=== PATIENT | female | born 1995 | race Caucasian/White ===

== ENCOUNTER 2016-11-14 08:56 | Emergency (ER) | payer OTHER ==
[~2016-11-14] VITALS: Ht 165.1 cm; Wt 80.0 kg
[~2016-11-14 08:56] MED LIST: CEPH-443 PO; PHEN-538 PO
[2016-11-14 08:57] VITALS: Ht 165.1 cm; Wt 80.0 kg
[2016-11-14] MEDS ORDERED: morphine 4 MG/ML VIAL IV STA (10:11)
[2016-11-14] MEDS ORDERED: SOD CHLORIDE 0.9% 1,000 ML IV STA (10:11)
[2016-11-14] MEDS ORDERED: ONDANSETRON 4 MG INJ ONE (10:42)
[2016-11-14 10:44] LABS: BASOPHILS % 0.1 % (0.0-2.0); EOSINOPHILS # 0.4 10^3/ul (0.0-0.5); EOSINOPHILS % 3.9 % (0.0-7.0); HEMATOCRIT 37.8 % (37.0-47.0); HEMOGLOBIN 12.3 g/dl (12.0-16.0); LYMPHOCYTES # 2.5 10^3/ul (0.8-2.9); LYMPHOCYTES % 26.5 % (15.0-51.0); MEAN CORPUSCULAR HEMOGLOBIN 28.3 pg (29.0-33.0); MEAN CORPUSCULAR HGB CONC 32.5 g/dl (32.0-37.0); MEAN CORPUSCULAR VOLUME 86.9 fl (82.0-101.0); MEAN PLATELET VOLUME 10.6 fl (7.4-10.4); MONOCYTE # 0.7 10^3/ul (0.3-0.9); MONOCYTES % 7.4 % (0.0-11.0); NEUTROPHIL # 5.8 10^3/ul (1.6-7.5); NEUTROPHILS % 61.8 % (39.0-77.0); PLATELET COUNT 248 10^3/UL (140-415); RED BLOOD COUNT 4.35 10^6/ul (4.20-5.40); RED CELL DISTRIBUTION WIDTH 13.2 % (11.5-14.5); WHITE BLOOD COUNT 9.4 10^3/ul (4.8-10.8)
[2016-11-14 10:57] LABS: ADD UMIC YES; UR ASCORBIC ACID NEGATIVE (NEGATIVE); UR BILIRUBIN (Dip) NEGATIVE (NEGATIVE); UR BLOOD (Dip) 2+ mg/dL (NEGATIVE); UR CLARITY CLOUDY (CLEAR); UR COLOR YELLOW (YELLOW); UR GLUCOSE (Dip) NEGATIVE (NEGATIVE); UR KETONES (Dip) NEGATIVE (NEGATIVE); UR LEUKOCYTE ESTERASE (Dip) 1+ Leu/ul (NEGATIVE); UR MUCUS FEW /HPF (NONE SEEN); UR NITRITE (Dip) NEGATIVE (NEGATIVE); UR NONSQUAMOUS EPITHELIAL CELL 1 /HPF (NONE SEEN); UR RBC 7 /HPF (0-5); UR SPECIFIC GRAVITY (Dip) 1.031 (1.003-1.030); UR SQUAMOUS EPITHELIAL CELL MODERATE /HPF (FEW); UR TOTAL PROTEIN (Dip) 1+ mg/dl (NEGATIVE); UR UROBILINOGEN (Dip) NEGATIVE (NEGATIVE)
[2016-11-14 11:00] LABS: ALBUMIN 4.1 g/dl (3.3-4.9); ALBUMIN/GLOBULIN RATIO 1.17; BILIRUBIN,INDIRECT 0.1 mg/dl (0-1.1); BILIRUBIN,TOTAL 0.1 mg/dl (0.2-1.3); CALCIUM 9.5 mg/dl (8.4-10.2); CREATININE 0.66 mg/dl (0.44-1.00); POTASSIUM 4.1 mmol/L (3.5-5.1); TOTAL PROTEIN 7.6 g/dl (6.1-8.1)
--- NOTE | 2016-11-14 11:29 | RADRPT ---
PROCEDURE: Renal US. CLINICAL INDICATION: Left flank pain TECHNIQUE: Multiple sonographic images of the kidneys were obtained. COMPARISON: No prior studies are available for comparison. FINDINGS: The kidneys are well visualized. The right kidney measures 11.5 cm. The left kidney measures 12.3 cm . Normal renal cortical echogenicity. No evidence of shadowing renal calculi. No hydronephrosis. Mi nimally distended urinary bladder. IMPRESSION: Normal renal ultrasound. RPTAT:AAJJ Physician Santosh Date Time Electronically viewed and signed by Quique Gallagher Physician on 11/14/2016 11:29 /
[2016-11-14] MEDS ORDERED: IBUP-1542 PO (11:54)
[2016-11-14] MEDS ORDERED: CEPH-443 PO (11:56)
--- NOTE | 2016-11-14 12:31 | ERD ---
ER Documentation Chief Complaint Date/Time DATE: 11/14/16 TIME: 12:27 Chief Complaint back pain x 3 days HPI 1-year-old female patient with a past medical history of urinary tract infections and nephrolithiasis presents to the ED complaining of left flank pain that started 3 days ago. Reports that she had one episode of nonbilious nonbloody vomiting and dysuria. States that she has burning with urination. That the left flank pain does radiate down to her left side of the abdomen. Denies any hematuria, urgency, frequency, chest pain, shortness of breath, wheezing, vaginal discharge, vaginal bleeding. ROS All systems reviewed and are negative except as per history of present illness. Medications Home Meds Active Scripts Cephalexin* (Keflex*) 500 Mg Capsule, 500 MG PO TID for 10 Days, CAP Prov:LOS DAVIS PA-C 11/14/16 Ibuprofen* (Motrin*) 600 Mg Tab, 600 MG PO Q6, #30 TAB Prov:LOS DAVIS PA-C 11/14/16 Phenazopyridine Hcl* (Pyridium*) 200 Mg Tab, 200 MG PO TID Y for URINARY PAIN, # 6 TAB Prov:SIRIA FANG PA-C 01/23/16 Cephalexin* (Keflex*) 500 Mg Capsule, 500 MG PO BID for 5 Days, CAP Prov:SIRIA FANG PA-C 01/23/16 Cephalexin* (Keflex*) 500 Mg Capsule, 500 MG PO QID for 7 Days, CAP Prov:SIRIA FANG PA-C 08/18/15 Allergies Allergies: Coded Allergies: No Known Allergy (Unverified , 08/17/15) PMhx/Soc Medical and Surgical Hx: pt denies Medical Hx, pt denies Surgical Hx History of Surgery: No Anesthesia Reaction: No Hx Neurological Disorder: No Hx Respiratory Disorders: No Hx Cardiac Disorders: No Hx Psychiatric Problems: No Hx Miscellaneous Medical Probl: Yes (left sided kidney stone ) Hx Alcohol Use: Yes (OOC) Hx Substance Use: Yes (MJ) Hx Tobacco Use: No Smoking Status: Never smoker Physical Exam Vitals Vital Signs Date Time Temp Pulse Resp B/P Pulse Ox O2 Delivery O2 Flow Rate FiO2 11/14/16 08:57 98.1 67 18 124/67 99 Physical Exam Const: [id number], well-nourished. In no acute distress. Head: Atraumatic, normocephalic Eyes: Normal Conjunctiva without injection. No purulent discharge. ENT: Normal external ear, nose. Moist oropharynx without tonsillar exudates. Non -erythematous pharynx. Uvula midline. No drooling. No trismus. Neck: No cervical midline tenderness. Full range of motion. No meningismus. No cervical lymphadenopathy. No JVD. Resp: Clear to auscultation bilaterally. No wheezing, rhonchi, rales, or crackles. No accessory muscle use. No retractions. Cardio: Regular rate and rhythm. No murmurs, rubs or gallops. Abd: Soft, nontender, non distended. Normal bowel sounds. No palpable masses. No rebound tenderness. No guarding. Negative McBurney's point. Negative psoas sign. Negative obturator sign. Skin: No petechiae or rashes Back: No midline tenderness. Left CVA Tenderness. Ext: No cyanosis, or edema. Neur: Awake and alert. Normal gait. Normal coordination. Psych: Normal Mood and Affect Results 24 hrs Laboratory Tests Test 11/14/16 10:31 White Blood Count 9.410^3/ul Red Blood Count 4.3510^6/ul Hemoglobin 12.3g/dl Hematocrit 37.8% Mean Corpuscular Volume 86.9fl Mean Corpuscular Hemoglobin 28.3pg Mean Corpuscular Hemoglobin Concent 32.5g/dl Red Cell Distribution Width 13.2% Platelet Count 83894^3/UL Mean Platelet Volume 10.6fl Neutrophils % 61.8% Lymphocytes % 26.5% Monocytes % 7.4% Eosinophils % 3.9% Basophils % 0.1% Nucleated Red Blood Cells % 0.0/100WBC Neutrophils # 5.810^3/ul Lymphocytes # 2.510^3/ul Monocytes # 0.710^3/ul Eosinophils # 0.410^3/ul Basophils # 0.010^3/ul Nucleated Red Blood Cells # 0.010^3/ul Urine Color YELLOW Urine Clarity CLOUDY Urine pH 5.0 Urine Specific [place] 1.031 Urine Ketones NEGATIVEmg/dL Urine Nitrite NEGATIVEmg/dL Urine Bilirubin NEGATIVEmg/dL Urine Urobilinogen NEGATIVEmg/dL Urine Leukocyte Esterase 1+Gerardo/ul Urine Microscopic RBC 7/HPF Urine Microscopic WBC 7/HPF Urine Squamous Epithelial Cells MODERATE/HPF Urine Mucus FEW/HPF Urine Hemoglobin 2+mg/dL Urine Glucose NEGATIVEmg/dL Urine Total Protein 1+mg/dl Sodium Level 141mmol/L Potassium Level 4.1mmol/L Chloride Level 106mmol/L Carbon Dioxide Level 27mmol/L Anion Gap 12 Blood Urea Nitrogen 17mg/dl Creatinine 0.66mg/dl Glucose Level 98mg/dl Calcium Level 9.5mg/dl Total Bilirubin 0.1mg/dl Direct Bilirubin 0.00mg/dl Indirect Bilirubin 0.1mg/dl Aspartate Amino Transf (AST/SGOT) 17IU/L Alanine Aminotransferase (ALT/SGPT) 36IU/L Alkaline Phosphatase 70IU/L Total Protein 7.6g/dl Albumin 4.1g/dl Globulin 3.50g/dl Albumin/Globulin Ratio 1.17 Lipase 104U/L Current Medications Medications (Trade) Dose Ordered Sig/Galileo Route PRN Reason Start Time Stop Time Status Last Admin Dose Admin Sodium Chloride (NS) 1,000 ml @ 1,000 mls/hr Q1H STAT IV 11/14/16 10:11 11/14/16 11:10 DC 11/14/16 10:45 Morphine Sulfate (morphine) 4 mg ONCE STAT IV 11/14/16 10:11 11/14/16 10:14 DC 11/14/16 10:45 Ondansetron HCl (Zofran Inj) 4 mg STK-MED ONCE .ROUTE 11/14/16 10:42 11/14/16 10:43 DC Procedures/MDM 1-year-old female patient with no significant past medical history presents to the ED complaining of left sided flank pain and dysuria. Patient is afebrile and nontoxic-appearing. Patient has normal vital signs. Patient was further worked up with CBC, CMP, lipase, UA, renal ultrasound. Patient's pain and symptoms have improved after treatment with 1 L normal saline, 4 mg IV morphine. CBC: No leukocytosis. No e/o of systemic infection. No e/o anemia. CMP: No e/o severe acidosis, alkalosis, renal failure, diabetic ketoacidosis, liver disease Lipase within normal limits. Urine : Negative PROCEDURE: Renal US. CLINICAL INDICATION: Left flank pain TECHNIQUE: Multiple sonographic images of the kidneys were obtained. COMPARISON: No prior studies are available for comparison. FINDINGS: The kidneys are well visualized. The right kidney measures 11.5 cm. The left kidney measures 12.3 cm. Normal renal cortical echogenicity. No evidence of shadowing renal calculi. No hydronephrosis. Minimally distended urinary bladder. IMPRESSION: Normal renal ultrasound. Patient's left flank pain could likely be secondary to pyelonephritis. There is no hydronephrosis or nephrolithiasis noted on ultrasound. Has 1+ leukocyte esterase with 7 white blood cells and 2+ hematuria with 7 red blood cells. There is low suspicion for septic renal stone, ectopic , ovarian torsion, gastritis, GERD, peptic ulcer disease, cholecystitis, choledocholithiasis, cholangitis, pancreatitis, appendicitis, bowel obstruction , ileus, volvulus, nephrolithiasis, pyelonephritis, hepatitis, perforated viscus , diverticulitis, strangulated/incarcerated hernia, DKA, acute abdomen, mesenteric ischemia or other emergent conditions. Discharge medications: Keflex, Ibuprofen Follow up with primary care physician in 1-2 days. Instructed patient to return to the ED sooner for any worsening symptoms. Patient's questions were answered. Patient understood and agreed with discharge plan. Patient discharged stable. Departure Diagnosis: Primary Impression: Flank pain Condition: Stable Patient Instructions: Pyelonephritis, Female (Adult) Referrals: COMMUNITY CLINICS YOU HAVE RECEIVED A MEDICAL SCREENING EXAM AND THE RESULTS INDICATE THAT YOU DO NOT HAVE A CONDITION THAT REQUIRES URGENT TREATMENT IN THE EMERGENCY DEPARTMENT. FURTHER EVALUATION AND TREATMENT OF YOUR CONDITION CAN WAIT UNTIL YOU ARE SEEN IN YOUR DOCTORS OFFICE WITHIN THE NEXT 1-2 DAYS. IT IS YOUR RESPONSIBILITY TO MAKE AN APPOINTMENT FOR FOLOW-UP CARE. IF YOU HAVE A PRIMARY DOCTOR --you should call your primary doctor and schedule an appointment IF YOU DO NOT HAVE A PRIMARY DOCTOR YOU CAN CALL OUR PHYSICIAN REFERRAL HOTLINE AT IF YOU CAN NOT AFFORD TO SEE A PHYSICIAN YOU CAN CHOSE FROM THE FOLLOWING [facility] [address] [facility] [address] [facility] [address] [facility] [address] [facility] [address] [facility]. [facility] [address] [facility]. [facility] YOU HAVE RECEIVED A MEDICAL SCREENING EXAM AND THE RESULTS INDICATE THAT YOU DO NOT HAVE A CONDITION THAT REQUIRES URGENT TREATMENT IN THE EMERGENCY DEPARTMENT. FURTHER EVALUATION AND TREATMENT OF YOUR CONDITION CAN WAIT UNTIL YOU ARE SEEN IN YOUR DOCTORS OFFICE WITHIN THE NEXT 1-2 DAYS. IT IS YOUR RESPONSIBILITY TO MAKE AN APPOINTMENT FOR FOLOW-UP CARE. IF YOU HAVE A PRIMARY DOCTOR --you should call your primary doctor and schedule and appointment IF YOU DO NOT HAVE A PRIMARY DOCTOR YOU CAN CALL OUR PHYSICIAN REFERRAL HOTLINE AT . IF YOU CAN NOT AFFORD TO SEE A PHYSICIAN YOU CAN CHOSE FROM THE FOLLOWING [facility] INSTITUTIONS: [facility] [id number] [place] [address] [facility] [address] [place] [address] [facility] [address] [place] [address] [facility] Additional Instructions: Call your primary care doctor TOMORROW for an appointment during the next 1-2 days.See the doctor sooner or return here if your condition worsens before your appointment time. LOS DAVIS PA-C Nov 14, 2016 12:31 days.See the doctor sooner or return here if your condition worsens before your appointment time. LOS DAVIS PA-C Nov 14, 2016 12:31
== END 2016-11-14 12:29 | disposition home or self-care (01) ==
LOC: FTE 08:56
DX: R10.9 Unspecified abdominal pain (principal)
CPT/HCPCS: 36415; 76775; 80053; 81001; 83690; 85025; 87086; 96374; J2270; J7030; Z7502; J2405

== ENCOUNTER 2017-02-21 09:10 | Emergency (ER) | END 2017-02-21 13:49 | disposition home or self-care (01) ==

== ENCOUNTER 2017-07-15 23:53 | Emergency (ER) | END 2017-07-16 05:03 | disposition home or self-care (01) ==

== ENCOUNTER 2017-07-25 21:28 | Emergency (ER) | END 2017-07-26 02:31 | disposition home or self-care (01) ==

== ENCOUNTER 2017-12-09 14:16 | Emergency (ER) | END 2017-12-09 16:36 | disposition home or self-care (01) ==

== ENCOUNTER 2017-12-12 16:53 | Emergency (ER) | END 2017-12-12 17:40 | disposition home or self-care (01) ==

== ENCOUNTER 2018-01-12 08:29 | Emergency (ER) | END 2018-01-12 17:02 | disposition home or self-care (01) ==

== ENCOUNTER 2018-01-23 04:45 | Emergency (ER) | END 2018-01-23 05:55 | disposition home or self-care (01) ==